=== PATIENT | male | born 1990 | race Caucasian/White ===

== ENCOUNTER 2020-04-16 10:05 | Emergency (ER) | payer MEDICAID ==
[~2020-04-16] VITALS: Ht 165.1 cm; Wt 70.0 kg
[~2020-04-16 10:05] MED LIST: 12HOUR DECONGE120 MG PO; ACCUPRIL5 MG; ACCUPRIL5 MG PO; AMOXICILLIN500 M2 PO; AMOXICILLIN500 MG PO; ANUSOL HC25 MG RE; AUGMENTIN500 MG OR; BACTRIM DS1 TAB PO; CEPHALEXIN500 MG PO; DOXYCYCL HYC100 MG PO; LOPROX EX; LORTAB 10-325 M1 TAB PO; LORTAB 5 OR; LORTAB 5/3255 MG PO; MEDDOSEPAK OR; NAPROSYN500 MG OR; NAPROSYN500 MG PO; NO MEDS; PENICILLN VK500 MG PO; PREDNISONE20 MG PO; PROVENTIL IN; SINGULAIR PO; TAM75CAP PO; TAMSULOSIN0.4 MG PO; ULTRAM50 M1 PO; VENTOLIN HFA IN; ZPAK PO
[2020-04-16 10:53] LABS: ALBUMIN 4.4 g/dL (3.2-5.0); ALKALINE PHOSPHATASE 62 u/l (38-126); AMYLASE 84 u/l (30-110); ANION GAP 12 (6-22 (CALC)); BILIRUBIN, TOTAL 0.4 mg/dL (0.0-1.4); BUN 9 mg/dL (9-20); BUN/CREATININE RATIO 12 (12-20 (CALC)); CHLORIDE 107 mmol/l (95-108); CREATININE 0.7 mg/dL (0.7-1.3); GFR > 60 ML/MIN (>=60 (CALC)); GFR FOR AFR.AMER. > 60 ML/MIN (>=60 (CALC)); LIPASE 497 u/l (23-300); POTASSIUM 3.5 mmol/l (3.5-5.1); SGOT/AST 20 u/l (17-59); SODIUM 138 mmol/l (137-146); TOTAL PROTEIN 6.8 g/dL (6.3-8.2)
[2020-04-16 10:54] LABS: CARBON DIOXIDE 23 mmol/l (22-30)
[2020-04-16 10:55] LABS: HEMATOCRIT 42.5 % (39.0-50.0); HEMOGLOBIN 14.3 g/dl (14.0-18.0); IMMATURE GRANULOCYTES 0.4 % (0.0-5.0); MEAN CORPUSCULAR HGB 28.3 pG CALC (26.0-32.0); MEAN CORPUSCULAR HGB CONC 33.6 g/dL CAL (32.0-36.0); NEUT# 3.78 thou/uL (1.82-7.42); RED BLOOD COUNT 5.06 mill/uL (4.70-6.10); RED CELL DISTRI WIDTH 12.9 % (11.5-15.5)
[2020-04-16 11:01] LABS: URINE BILIRUBIN - DIPSTICK NEGATIVE (NEGATIVE); URINE BLOOD DIPSTICK NEGATIVE (NEGATIVE); URINE COLOR YELLOW; URINE GLUCOSE - DIPSTICK NEGATIVE (NEGATIVE); URINE KETONE NEGATIVE (NEGATIVE); URINE LEUK ESTERASE NEGATIVE (NEGATIVE); URINE NITRITE - DIPSTICK NEGATIVE (Negative); URINE PROTEIN - DIPSTICK NEGATIVE (NEG-TRACE); URINE UROBILINOGEN - DIPSTICK 0.2 E.U./dL (0.2)
[2020-04-16] MEDS ORDERED: PREVACID30 M3 PO ×2 (13:35)
[2020-04-16] MEDS ORDERED: ONDANSETRON4 MG PO ×2 (13:35)
[2020-04-16] MEDS ORDERED: ULTRAM50 M1 PO (13:35)
[2020-04-16 13:41] VITALS: BP 136/70
[2020-06-04] MEDS ORDERED: ALBUTEROL SUL0.083 % IN (09:28)
[2020-06-06] MEDS ORDERED: PROAIR HFA IN (08:41)
== END 2020-04-16 13:50 | disposition home or self-care (01) ==
LOC: ED 10:05
PROVIDERS: Emergency Medicine
DX: N20.0 Calculus of kidney (principal); K80.20 Calculus of gallbladder without cholecystitis without obstruction; Z87.442 Personal history of urinary calculi

== ENCOUNTER 2020-06-12 07:19 | Day surgery (SDC) | payer MEDICAID ==
[~2020-06-12] VITALS: Ht 165.1 cm; Wt 64.4 kg
[~2020-06-12 07:19] MED LIST changes: +ALBUTEROL SUL0.083 % IN; +ONDANSETRON4 MG PO; +PREVACID30 M3 PO; +PROAIR HFA IN
[2020-06-12] MEDS ORDERED: PERCOCET 5/321 COMBO PO (09:16)
[2020-06-12 10:40] VITALS: BP 124/97
== END 2020-06-12 11:00 | disposition home or self-care (01) ==
LOC: ORM 07:19
PROVIDERS: ATTEND Surgery
DX: K80.12 Calculus of gallbladder with acute and chronic cholecystitis without obstruction (principal); J45.909 Unspecified asthma, uncomplicated; F17.210 Nicotine dependence, cigarettes, uncomplicated; Z20.828 Contact with and (suspected) exposure to other viral communicable diseases
CPT/HCPCS: J0131; J1610; Q9967

== ENCOUNTER 2020-06-26 10:34 | Emergency (ER) | payer MEDICAID ==
[~2020-06-26] VITALS: Ht 165.1 cm; Wt 75.0 kg
[~2020-06-26 10:34] MED LIST changes: +PERCOCET 5/321 COMBO PO
[2020-06-26 11:20] LABS: HEMATOCRIT 44.9 % (39.0-50.0); IMMATURE GRANULOCYTES 0.3 % (0.0-5.0); MEAN CORPUSCULAR HGB 28.4 pG CALC (26.0-32.0); MEAN CORPUSCULAR HGB CONC 33.4 g/dL CAL (32.0-36.0); NEUT# 4.62 thou/uL (1.82-7.42); RED BLOOD COUNT 5.28 mill/uL (4.70-6.10); RED CELL DISTRI WIDTH 12.4 % (11.5-15.5)
[2020-06-26 11:24] LABS: URINE BLOOD DIPSTICK LARGE (NEGATIVE); URINE COLOR YELLOW; URINE GLUCOSE - DIPSTICK NEGATIVE (NEGATIVE); URINE KETONE TRACE mg/dL (NEGATIVE); URINE LEUK ESTERASE NEGATIVE (NEGATIVE); URINE NITRITE - DIPSTICK NEGATIVE (Negative); URINE PH 5.5 (4.5-8.0); URINE PROTEIN - DIPSTICK 30 mg/dL (NEG-TRACE); URINE SPECIFIC GRAVITY >=1.030
[2020-06-26 11:28] LABS: URINE BILIRUBIN - DIPSTICK MODERATE (NEGATIVE)
[2020-06-26 11:40] LABS: ALBUMIN 4.1 g/dL (3.2-5.0); ALKALINE PHOSPHATASE 85 u/l (38-126); AMYLASE 73 u/l (30-110); BILIRUBIN, TOTAL 0.5 mg/dL (0.0-1.4); BUN 12 mg/dL (9-20); BUN/CREATININE RATIO 14 (12-20 (CALC)); CHLORIDE 103 mmol/l (95-108); CREATININE 0.9 mg/dL (0.7-1.3); GFR > 60 ML/MIN (>=60 (CALC)); GFR FOR AFR.AMER. > 60 ML/MIN (>=60 (CALC)); LIPASE 104 u/l (23-300); POTASSIUM 3.8 mmol/l (3.5-5.1); SGOT/AST 21 u/l (17-59); SODIUM 137 mmol/l (137-146); TOTAL PROTEIN 6.6 g/dL (6.3-8.2)
[2020-06-26 11:45] LABS: ANION GAP 10 (6-22 (CALC)); CARBON DIOXIDE 28 mmol/l (22-30)
[2020-06-26] MEDS ORDERED: TAMSULOSIN0.4 MG PO (13:51)
[2020-06-26] MEDS ORDERED: NAPROXEN500 MG PO ×2 (13:52)
[2020-06-26 14:28] VITALS: BP 103/63
== END 2020-06-26 14:28 | disposition home or self-care (01) ==
LOC: ED 10:34
PROVIDERS: Emergency Medicine
DX: N20.0 Calculus of kidney (principal); F17.200 Nicotine dependence, unspecified, uncomplicated; Z90.49 Acquired absence of other specified parts of digestive tract; Z87.442 Personal history of urinary calculi
CPT/HCPCS: Q9967

== ENCOUNTER 2020-07-18 14:32 | Emergency (ER) | payer MEDICAID ==
[~2020-07-18] VITALS: Ht 165.1 cm; Wt 75.0 kg
[~2020-07-18 14:32] MED LIST changes: +NAPROXEN500 MG PO
[2020-07-18 15:39] LABS: HEMATOCRIT 45.9 % (39.0-50.0); HEMOGLOBIN 15.3 g/dl (14.0-18.0); IMMATURE GRANULOCYTES 0.4 % (0.0-5.0); MEAN CELL VOLUME 86.1 fL CALC (80.0-100.0); MEAN CORPUSCULAR HGB 28.7 pG CALC (26.0-32.0); MEAN CORPUSCULAR HGB CONC 33.3 g/dL CAL (32.0-36.0); NEUT# 4.93 thou/uL (1.82-7.42); RED BLOOD COUNT 5.33 mill/uL (4.70-6.10); RED CELL DISTRI WIDTH 12.7 % (11.5-15.5)
[2020-07-18 16:01] LABS: ALBUMIN 4.2 g/dL (3.2-5.0); ALKALINE PHOSPHATASE 68 u/l (38-126); ANION GAP 11 (6-22 (CALC)); BILIRUBIN, TOTAL 0.4 mg/dL (0.0-1.4); BUN 12 mg/dL (9-20); BUN/CREATININE RATIO 14 (12-20 (CALC)); CARBON DIOXIDE 27 mmol/l (22-30); CHLORIDE 105 mmol/l (95-108); CREATININE 0.8 mg/dL (0.7-1.3); GFR > 60 ML/MIN (>=60 (CALC)); GFR FOR AFR.AMER. > 60 ML/MIN (>=60 (CALC)); LIPASE 260 u/l (23-300); POTASSIUM 4.2 mmol/l (3.5-5.1); SGOT/AST 21 u/l (17-59); SODIUM 139 mmol/l (137-146); TOTAL PROTEIN 6.7 g/dL (6.3-8.2)
[2020-07-18] MEDS ORDERED: ONDANSETRON4 MG PO (17:36)
[2020-07-18 17:58] VITALS: BP 120/72
[2020-07-18 18:36] LABS: URINE BILIRUBIN - DIPSTICK NEGATIVE (NEGATIVE); URINE BLOOD DIPSTICK NEGATIVE (NEGATIVE); URINE COLOR YELLOW; URINE GLUCOSE - DIPSTICK NEGATIVE (NEGATIVE); URINE KETONE NEGATIVE (NEGATIVE); URINE LEUK ESTERASE NEGATIVE (NEGATIVE); URINE NITRITE - DIPSTICK NEGATIVE (Negative); URINE PH 6.5 (4.5-8.0); URINE PROTEIN - DIPSTICK NEGATIVE (NEG-TRACE); URINE SPECIFIC GRAVITY 1.015; URINE UROBILINOGEN - DIPSTICK 0.2 E.U./dL (0.2)
== END 2020-07-18 18:20 | disposition home or self-care (01) ==
LOC: ED 14:32
PROVIDERS: Family Medicine
DX: K56.7 Ileus, unspecified (principal); J45.909 Unspecified asthma, uncomplicated; F17.200 Nicotine dependence, unspecified, uncomplicated; Z90.49 Acquired absence of other specified parts of digestive tract
CPT/HCPCS: Q9967

== ENCOUNTER 2020-08-02 17:22 | Emergency (ER) | payer MEDICAID ==
[~2020-08-02] VITALS: Ht 165.1 cm; Wt 63.0 kg
[2020-08-02] MEDS ORDERED: ZOFRAN4 MG/TAB PO (17:53)
[2020-08-02] MEDS ORDERED: NAPROXEN500 MG PO (18:54)
[2020-08-02] MEDS ORDERED: ONDANSETRON4 MG PO (18:54)
[2020-08-02] MEDS ORDERED: AMOXICILLIN500 MG PO (18:54)
[2020-08-02 19:05] VITALS: BP 112/56
== END 2020-08-02 19:05 | disposition home or self-care (01) ==
LOC: ED 17:22
DX: S01.511A Laceration without foreign body of lip, initial encounter (principal); J45.909 Unspecified asthma, uncomplicated; F17.200 Nicotine dependence, unspecified, uncomplicated; W50.0XXA Accidental hit or strike by another person, initial encounter; Y93.71 Activity, boxing; Y92.009 Unspecified place in unspecified non-institutional (private) residence as the place of occurrence of the external cause

== ENCOUNTER 2021-08-05 10:44 | Emergency (ER) | payer MEDICAID ==
[~2021-08-05] VITALS: Ht 165.1 cm; Wt 60.0 kg
[~2021-08-05 10:44] MED LIST changes: +ZOFRAN4 MG/TAB PO
[2021-08-05 11:32] LABS: HEMATOCRIT 45.1 % (39.0-50.0); HEMOGLOBIN 15.3 g/dl (14.0-18.0); IMMATURE GRANULOCYTES 0.1 % (0.0-5.0); MEAN CELL VOLUME 86.9 fL CALC (80.0-100.0); MEAN CORPUSCULAR HGB 29.5 pG CALC (26.0-32.0); MEAN CORPUSCULAR HGB CONC 33.9 g/dL CAL (32.0-36.0); NEUT# 4.16 thou/uL (1.82-7.42); RED BLOOD COUNT 5.19 mill/uL (4.70-6.10); RED CELL DISTRI WIDTH 12.7 % (11.5-15.5)
[2021-08-05 11:49] LABS: ALBUMIN 3.7 g/dL (3.2-5.0); ALKALINE PHOSPHATASE 46 u/l (38-126); ANION GAP 6 (6-22 (CALC)); BILIRUBIN, TOTAL 0.4 mg/dL (0.0-1.4); BUN 9 mg/dL (9-20); BUN/CREATININE RATIO 13 (12-20 (CALC)); CARBON DIOXIDE 31 mmol/l (22-30); CHLORIDE 107 mmol/l (95-108); CREATININE 0.7 mg/dL (0.7-1.3); GFR > 60 ML/MIN (>=60 (CALC)); GFR FOR AFR.AMER. > 60 ML/MIN (>=60 (CALC)); POTASSIUM 4.1 mmol/l (3.5-5.1); SGOT/AST 22 u/l (17-59); SODIUM 141 mmol/l (137-146); TOTAL PROTEIN 6.6 g/dL (6.3-8.2)
[2021-08-05 12:23] LABS: URINE BILIRUBIN - DIPSTICK NEGATIVE (NEGATIVE); URINE BLOOD DIPSTICK NEGATIVE (NEGATIVE); URINE COLOR YELLOW; URINE GLUCOSE - DIPSTICK NEGATIVE (NEGATIVE); URINE KETONE NEGATIVE (NEGATIVE); URINE PROTEIN - DIPSTICK NEGATIVE (NEG-TRACE)
[2021-08-05 12:25] LABS: URINE NITRITE - DIPSTICK NEGATIVE (Negative)
[2021-08-05 12:32] LABS: URINE LEUK ESTERASE NEGATIVE (NEGATIVE)
[2021-08-05 13:19] LABS: TSH, 3RD GENERATION 0.86 uIU/mL (0.47 - 4.68)
[2021-08-05 19:12] VITALS: BP 103/70
== END 2021-08-05 19:23 | disposition home or self-care (01) ==
LOC: ED 10:44
PROVIDERS: Emergency Medicine
DX: R53.1 Weakness (principal); R00.1 Bradycardia, unspecified; J45.909 Unspecified asthma, uncomplicated; F17.210 Nicotine dependence, cigarettes, uncomplicated; Z90.49 Acquired absence of other specified parts of digestive tract; Z79.899 Other long term (current) drug therapy
CPT/HCPCS: Q9967

== ENCOUNTER 2022-12-01 14:05 | Emergency (ER) | payer OTHER ==
[2022-12-01] VITALS (7 sets, daily range): BP systolic 111–159; BP diastolic 78–126
[~2022-12-01] VITALS: Ht 165.1 cm; Wt 70.0 kg
[2022-12-01 14:38] LABS: BASO% 0.6 % (0-3); EOS% 2.1 % (0-8); HEMATOCRIT 45.2 % (39.0-50.0); HEMOGLOBIN 15.2 g/dl (14.0-18.0); LYMPH% 30.9 % (15-41); MEAN CELL VOLUME 84.2 fL CALC (80.0-100.0); MEAN CORPUSCULAR HGB 28.3 pG CALC (26.0-32.0); MEAN CORPUSCULAR HGB CONC 33.6 g/dL CAL (32.0-36.0); MONO% 9.8 % (2-13); NEUT# 3.77 thou/uL (1.82-7.42); NEUT% 56.6 % (42-76); RED BLOOD COUNT 5.37 mill/uL (4.70-6.10); RED CELL DISTRI WIDTH 12.2 % (11.5-15.5)
[2022-12-01 14:57] LABS: ALBUMIN 4.1 g/dL (3.2-5.0); ALKALINE PHOSPHATASE 54 u/l (38-126); ANION GAP 8 (6-22 (CALC)); BILIRUBIN, TOTAL 0.3 mg/dL (0.2-1.3); BUN 11 mg/dL (9-20); BUN/CREATININE RATIO 12 (12-20 (CALC)); CARBON DIOXIDE 30 mmol/l (22-30); CHLORIDE 105 mmol/l (95-108); CREATININE 0.9 mg/dL (0.7-1.3); GFR FOR AFR.AMER. > 60 ML/MIN (>=60 (CALC)); GFR OTHER RACES > 60 ML/MIN (>=60 (CALC)); LIPASE 1173 u/l (23-300); POTASSIUM 3.6 mmol/l (3.5-5.1); SGOT/AST 19 u/l (17-59); SODIUM 139 mmol/l (137-146); TOTAL PROTEIN 6.4 g/dL (6.3-8.2)
[2022-12-01 16:16] LABS: URINE BILIRUBIN - DIPSTICK NEGATIVE (NEGATIVE); URINE BLOOD DIPSTICK NEGATIVE (NEGATIVE); URINE COLOR YELLOW; URINE GLUCOSE - DIPSTICK NEGATIVE (NEGATIVE); URINE KETONE NEGATIVE (NEGATIVE); URINE LEUK ESTERASE NEGATIVE (NEGATIVE); URINE PH 6.5 (4.5-8.0); URINE PROTEIN - DIPSTICK NEGATIVE (NEG-TRACE); URINE SPECIFIC GRAVITY >=1.030
[2022-12-01 16:18] LABS: URINE NITRITE - DIPSTICK NEGATIVE (Negative)
[2022-12-01] MEDS ORDERED: ONDANSETRON4 MG PO (16:44)
[2022-12-01] MEDS ORDERED: TRAMADOL HYDROC50 M1 PO (16:44)
== END 2022-12-01 17:47 | disposition home or self-care (01) ==
LOC: ED 14:05
PROVIDERS: Family Medicine
DX: K85.90 Acute pancreatitis without necrosis or infection, unspecified (principal); J45.909 Unspecified asthma, uncomplicated; F17.200 Nicotine dependence, unspecified, uncomplicated; Z87.442 Personal history of urinary calculi
CPT/HCPCS: Q9967

== ENCOUNTER 2023-01-06 14:04 | Emergency (ER) | payer OTHER ==
[2023-01-06] VITALS (10 sets, daily range): BP systolic 94–108; BP diastolic 60–74
[~2023-01-06] VITALS: Ht 165.1 cm; Wt 53.6 kg
[~2023-01-06 14:04] MED LIST changes: +TRAMADOL HYDROC50 M1 PO
[2023-01-06 15:23] LABS: BASO% 0.6 % (0-3); EOS% 2.9 % (0-8); HEMATOCRIT 48.1 % (39.0-50.0); HEMOGLOBIN 15.7 g/dl (14.0-18.0); IMMATURE GRANULOCYTES 0.1 % (0.0-5.0); LYMPH% 26.8 % (15-41); MEAN CELL VOLUME 88.6 fL CALC (80.0-100.0); MEAN CORPUSCULAR HGB 28.9 pG CALC (26.0-32.0); MEAN CORPUSCULAR HGB CONC 32.6 g/dL CAL (32.0-36.0); MONO% 8.9 % (2-13); NEUT# 4.16 thou/uL (1.82-7.42); NEUT% 60.7 % (42-76); RED BLOOD COUNT 5.43 mill/uL (4.70-6.10); RED CELL DISTRI WIDTH 13.1 % (11.5-15.5); URINE BILIRUBIN - DIPSTICK NEGATIVE (NEGATIVE); URINE BLOOD DIPSTICK NEGATIVE (NEGATIVE); URINE COLOR YELLOW; URINE GLUCOSE - DIPSTICK NEGATIVE (NEGATIVE); URINE KETONE NEGATIVE (NEGATIVE); URINE LEUK ESTERASE NEGATIVE (NEGATIVE); URINE PROTEIN - DIPSTICK NEGATIVE (NEG-TRACE)
[2023-01-06 15:24] LABS: URINE NITRITE - DIPSTICK NEGATIVE (Negative)
[2023-01-06 15:31] LABS: ALBUMIN 4.1 g/dL (3.2-5.0); ALKALINE PHOSPHATASE 62 u/l (38-126); ANION GAP 8 (6-22 (CALC)); BILIRUBIN, TOTAL 0.3 mg/dL (0.2-1.3); BUN 13 mg/dL (9-20); BUN/CREATININE RATIO 16 (12-20 (CALC)); CARBON DIOXIDE 31 mmol/l (22-30); CHLORIDE 106 mmol/l (95-108); CREATININE 0.8 mg/dL (0.7-1.3); GFR FOR AFR.AMER. > 60 ML/MIN (>=60 (CALC)); GFR OTHER RACES > 60 ML/MIN (>=60 (CALC)); LIPASE 692 u/l (23-300); POTASSIUM 4.2 mmol/l (3.5-5.1); SGOT/AST 20 u/l (17-59); SODIUM 141 mmol/l (137-146); TOTAL PROTEIN 6.4 g/dL (6.3-8.2)
[2023-01-06] MEDS ORDERED: ZOFRAN4 MG/TAB PO (18:33)
== END 2023-01-06 19:46 | disposition left against medical advice (07) ==
LOC: ED 14:04
PROVIDERS: Family Medicine
DX: K85.90 Acute pancreatitis without necrosis or infection, unspecified (principal); J45.909 Unspecified asthma, uncomplicated; F17.200 Nicotine dependence, unspecified, uncomplicated; Z53.29 Procedure and treatment not carried out because of patient's decision for other reasons
CPT/HCPCS: Q9967

== ENCOUNTER 2023-10-20 15:49 | Emergency (ER) | payer SELFPAY ==
[~2023-10-20] VITALS: Ht 165.1 cm; Wt 63.0 kg
[~2023-10-20 15:49] MED LIST changes: +BUSPAR10 MG PO; +GABAPENTIN300 M2; +OMEPRAZOLE20 MG PO; +PREDNISONE50 MG PO; +VENTOLIN HFA108 MCG PO
[2023-10-20 16:08] VITALS: BP 123/88
[2023-10-20 17:58] VITALS: BP 123/88
[2023-10-20] MEDS ORDERED: KEFLEX500 MG PO (18:05)
== END 2023-10-20 18:20 | disposition home or self-care (01) | DRG 563 ==
LOC: ED 15:49
PROC: 0HQFXZZ Repair Right Hand Skin, External Approach (ICD-10-PCS; principal; 2023-10-20)
DX: S62.630B Displaced fracture of distal phalanx of right index finger, initial encounter for open fracture (principal); F17.200 Nicotine dependence, unspecified, uncomplicated; W29.8XXA Contact with other powered hand tools and household machinery, initial encounter

== ENCOUNTER 2023-11-01 10:33 | Emergency (ER) | payer SELFPAY ==
[~2023-11-01] VITALS: Ht 165.1 cm; Wt 61.0 kg
[~2023-11-01 10:33] MED LIST changes: +KEFLEX500 MG PO
[2023-11-01 10:52] VITALS: BP 122/85
[2023-11-01 11:00] VITALS: BP 118/85
[2023-11-01] MEDS ORDERED: BACTRIM DS1 TAB PO (11:15)
[2023-11-01 11:28] VITALS: BP 118/85
== END 2023-11-01 11:34 | disposition home or self-care (01) | DRG 603 ==
LOC: ED 10:33
DX: L03.011 Cellulitis of right finger (principal); S61.210D Laceration without foreign body of right index finger without damage to nail, subsequent encounter; X58.XXXD Exposure to other specified factors, subsequent encounter; F17.200 Nicotine dependence, unspecified, uncomplicated

== ENCOUNTER 2024-05-03 10:41 | Emergency (ER) | payer SELFPAY ==
[~2024-05-03] VITALS: Ht 165.1 cm; Wt 55.8 kg
[2024-05-03] VITALS (8 sets, daily range): BP systolic 96–115; BP diastolic 62–80
[~2024-05-03 10:41] MED LIST changes: +BENZONATATE200 MG PO; +MAXITROL 0.1 %1 SUS OU; +ZYRTEC10 MG PO
[2024-05-03 11:17] LABS: BASO% 0.7 % (0-3); EOS% 4.9 % (0-8); IMMATURE GRANULOCYTES 0.1 % (0.0-5.0); LYMPH% 31.9 % (15-41); MEAN CORPUSCULAR HGB 28.8 pG CALC (26.0-32.0); MEAN CORPUSCULAR HGB CONC 33.1 g/dL CAL (32.0-36.0); MONO% 9.9 % (2-13); NEUT# 3.68 thou/uL (1.82-7.42); NEUT% 52.5 % (42-76); RED BLOOD COUNT 4.69 mill/uL (4.70-6.10); RED CELL DISTRI WIDTH 13.5 % (11.5-15.5)
[2024-05-03 11:20] LABS: HEMATOCRIT 40.8 % (39.0-50.0); HEMOGLOBIN 13.5 g/dl (14.0-18.0)
[2024-05-03] MEDS ORDERED: LIDOCAINE VISCOUS 2% 15 ML UDC PO ONE (11:35)
[2024-05-03] MEDS ORDERED: ALUM & MAG HYDROX-SIMETHICONE 30 ML PO ONE (11:35)
[2024-05-03 12:02] LABS: ALBUMIN 3.7 g/dL (3.2-5.0); ALKALINE PHOSPHATASE 50 u/l (38-126); ANION GAP 6 (6-22 (CALC)); BUN 12 mg/dL (9-20); BUN/CREATININE RATIO 14 (12-20 (CALC)); CARBON DIOXIDE 25 mmol/l (22-30); CHLORIDE 112 mmol/l (95-108); CREATININE 0.8 mg/dL (0.7-1.3); ESTIMATED GFR 119 ML/MIN (>=90 (CALC)); POTASSIUM 4.1 mmol/l (3.5-5.1); SGOT/AST 35 u/l (17-59); SODIUM 138 mmol/l (137-146)
[2024-05-03 12:03] LABS: BILIRUBIN, TOTAL 0.2 mg/dL (0.2-1.3)
[2024-05-03 12:40] LABS: URINE BLOOD DIPSTICK Negative (NEGATIVE); URINE COLOR Yellow; URINE GLUCOSE - DIPSTICK Negative (NEGATIVE); URINE KETONE Trace mg/dL (NEGATIVE); URINE LEUK ESTERASE Negative (NEGATIVE); URINE NITRITE - DIPSTICK Negative (Negative); URINE PROTEIN - DIPSTICK Negative (NEG-TRACE); URINE SPECIFIC GRAVITY 1.025
[2024-05-03] MEDS ORDERED: OMEPRAZOLE DR40 MG PO (15:13)
== END 2024-05-03 15:30 | disposition home or self-care (01) | DRG 392 ==
LOC: ED 10:41
PROVIDERS: Family Medicine
DX: R10.13 Epigastric pain (principal); J45.909 Unspecified asthma, uncomplicated; F17.210 Nicotine dependence, cigarettes, uncomplicated; Z87.442 Personal history of urinary calculi